=== PATIENT | male | born 1950 | race Caucasian/White ===

== ENCOUNTER 2016-11-27 19:39 | Emergency (ER) | payer OTHER ==
--- NOTE | 2016-11-27 21:00 | DIAGNOSTIC IMAGING REPORT ---
PROCEDURE: XR FINGER - LEFT (second finger). INDICATION: TRAUMA/INJURY TECHNIQUE: Three views. COMPARISON: None. FINDINGS: There is a deep soft tissue laceration of the volar / distal left second finger. Osseous structures and joint spaces are normal. No evidence of fracture. IMPRESSION: 1. Soft tissue laceration of the distal left second finger. 2. No evidence of fracture.
--- NOTE | 2016-11-27 21:24 | ED CLINICAL REPORT ---
Clinical Report - Physicians/Mid Levels [facility] [address] [place] [address] 11/27/2016 19:41 [id number] Time Seen: 21:Nov 27 2016. Arrived- By private vehicle. Historian- family and spouse. HISTORY OF PRESENT ILLNESS Chief Complaint: Injury to the left index finger. The injury happened just prior to arrival. The patient sustained a laceration and crush injury. Occurred at work. ( saw vs finger just prior to arrival. Denies si. Prior nail injury of the digit, no complicaitons from previous injury. Tdap up to date. FUll rom.). REVIEW OF SYSTEMS No tingling, numbness or skin laceration. All systems otherwise negative, except as recorded above. PAST HISTORY The patient's dominant hand is the right. He has had a prior injury to the same area. Tetanus immunization status is up-to-date. SOCIAL HISTORY Never smoker. No alcohol use or drug use. PHYSICAL EXAM Appearance: Alert. Head: Head atraumatic. CVS: Normal heart rate and rhythm. Heart sounds normal. Respiratory: No respiratory distress. Breath sounds normal. No decreased air movement. Extremities: Tip of left index finger: subcutaneous 1.0 cm laceration. No foreign body. No subungual hematoma, nail avulsion, exposed bone or loss of the nail bed on the left index finger or tip amputation of the left index finger. Neuro, Vascular and Tendons: Vascular status intact. Motor intact. Neuro: Oriented X 3. LABS, X-RAYS, AND EKG Lt UE Digits X-ray: (IMPRESSION: 1. Soft tissue laceration of the distal left second finger. 2. No evidence of fracture. _ Electronically Final signed by:Darrius Huerta MD 11/27/2016 8:55:52 PM). PROGRESS AND PROCEDURES Laceration Repair: Time: :Nov 27 2016. Location: left index finger. Time-out completed immediately before the procedure. Length: 1 cm. Complexity: simple (local anesthesia used and sutured). Wound depth/shape- linear and involving fascia. Wound is clean. Neuro/vascular/tendon status. Tendon examined. No sensory deficit or motor deficit distally. No tendon deficit. Anesthesia provided by digital block using 0.25% Marcaine. Prepped with Betadine. Wound explored, cleansed and irrigated. Subcutaneous closure: interrupted 4-0 (4, non absorb). Post-procedure: he is stable and there are no complications. Bleeding is controlled and neuro-vascular status is intact distal to the wound. Dressing applied. Tetanus immunization up-to-date. Course of Care: distal duncan surface lac, with no underlying fx or underlying neurovascular/ tendon injury, just distal to dip. No fb, no secondary signs of infection. Patient is stable. Symptoms better. Patient/family counseled. Disposition: Discharged. CLINICAL IMPRESSION Single deep laceration to the left index finger.Treatment of laceration not delayed. No infection or foreign body present. INSTRUCTIONS Apply ice. Elevate affected areas above chest level. Protect wound and keep wound area clean. Apply bacitracin twice daily. Sutures should be removed in six days. (6-8 days for suture removal). Follow-up: Follow up with your doctor in seven days. (Electronically signed by Albania Evans P.A.-C 11/27/2016 21:31)
--- NOTE | 2016-11-27 21:24 | ED NURSING NOTES ---
Clinical Report - Nurses [facility] [place] [place] [address] 11/27/2016 19:41 [id number] TRI[facility] Triage time 07:45. Acuity: LEVEL 4. Chief Complaint: INJURY TO LEFT HAND. 19:54 11/27/16. Alert. No acute distress. SEPSIS SCREEN: Sepsis Screen. Negative (no infection suspected/documented). GEOVANNA COMA SCORE: Geovanna Coma Scale: 15- eyes open spontaneously (4); best verbal response- oriented x 4 (5); best motor response- obeys commands (6). --19:54 Brie Charlton R.N. 19:49 11/27/16. BP: 163/82. HR: 75. RR: 15. O2 saturation: 97%. Temp: 97.5 F. Pain level now: 10/09. --19:54 Brie Charlton R.N. Weight: 77.1 kg stated. Height/Length: 65 inches Per Patient. BMI: 28.3. --19:52 Brie Charlton R.N. Medications Amlodipine Besy-Benazepril HCl Oral. --19:51 Brie Charlton R.N. Enalapril Maleate Oral. --19:51 Brie Charlton R.N. Allergies None. --19:51 Brie Charlton R.N. History Arrived by private vehicle. Historian: patient. Accompanied by family. Primary physician (Dr Branham). This occurred just prior to arrival. He sustained a laceration from a sharp edge. ( Patient reports that his "finger was in the wrong place" when he was sawing wood. His finger was cut by the saw). 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 PAST MEDICAL HX: Tetanus status: up-to-date. Immunizations: up-to-date. SOCIAL HX: Never smoker. No alcohol use or drug use. FALL RISK ASSESSMENT: Fall risk assessment completed. No fall risk identified. NUTRITIONAL RISK ASSESSMENT: The nutritional risk assessment revealed no deficiencies. FUNCTIONAL ASSESSMENT: Functional assessment: no impairments noted. LEARNING NEEDS ASSESSMENT: The learning needs assessment revealed no barriers. SKIN INTEGRITY ASSESSMENT: Skin integrity risk assessment completed. No skin integrity risk identified. --19:54 Brie Charlton R.N. PROBLEMS: Ureterolithiasis. Nephrolithiasis. Acute Pain. Nail Avulsion. Tetanus Status. Hypertension. --19:51 Brie Charlton R.N. ADDITIONAL SURGERIES: Blood clot removal from brain. Hernia Repair. Knee Surgery. Vasectomy. --19:51 Brie Charlton R.N. Interventions ID band on patient. To treatment room. --19:54 Brie Charlton R.N. PHYSICAL ASSESSMENT 19:54 11/27/16. Ambulatory to room. GENERAL / NEURO / PSYCH: Oriented X 4. Alert. Appears in no acute distress. EXTREMITIES: Capillary refill is less than 2 seconds in the extremities. Extremity pulses are within normal limits. Extremities exhibit normal ROM. Tip of left index finger: subcutaneous 1.0 cm laceration with bleeding. SKIN: Skin intact. Skin is warm and dry. --19:54 Brie Charlton R.N. NURSING PROGRESS NOTES 19:55 11/27/16. Two patient identifiers checked. Call light placed in reach. Side rails up x 1. Bed placed in lowest position. Brakes of bed on. Patient ready for evaluation- chart flagged and notification provided. --19:55 Brie Charlton R.N. 20:54. Patient and family informed about reason for wait and about plan of care. --20:59 Brie Charlton R.N. 21:14. Applied dressing consisting of gauze, following the application of antibiotic ointment (bacitracin). Secured with tube gauze. --03:31 Brie Charlton R.N. DISPOSITION / DISCHARGE 21:38 11/27/16. No learning barriers present. Discharge instructions provided and reviewed with the patient and spouse. Reviewed medication(s). Treatments reviewed. Activity restrictions reviewed. Patient and spouse verbalized understanding. Written instructions provided in Nepali. The patient was discharged home and accompanied by spouse. He left the Emergency Department ambulatory and via private vehicle. Spouse driving. --21:38 Brie Charlton R.N. 21:37 11/27/16. BP: 149/91. HR: 66. RR: 16. O2 saturation: 98%. Temp: deferred. Pain level now: 10/09. --21:38 Brie Charlton R.N. Locked/Released at 11/28/2016 3:32 by Brie Charlton R.N.
--- NOTE | 2016-11-27 21:24 | ED NURSING NOTES ---
Clinical Report - Nurses [facility] [address] [place] [address] 11/27/2016 19:41 [id number] TRI[facility] Triage time 07:45. Acuity: LEVEL 4. Chief Complaint: INJURY TO LEFT HAND. 19:54 11/27/16. Alert. No acute distress. SEPSIS SCREEN: Sepsis Screen. Negative (no infection suspected/documented). GEOVANNA COMA SCORE: Geovanna Coma Scale: 15- eyes open spontaneously (4); best verbal response- oriented x 4 (5); best motor response- obeys commands (6). --19:54 Brie Charlton R.N. 19:49 11/27/16. BP: 163/82. HR: 75. RR: 15. O2 saturation: 97%. Temp: 97.5 F. Pain level now: 10/09. --19:54 Brie Charlton R.N. Weight: 77.1 kg stated. Height/Length: 65 inches Per Patient. BMI: 28.3. --19:52 Brie Charlton R.N. Medications Amlodipine Besy-Benazepril HCl Oral. --19:51 Brie Charlton R.N. Enalapril Maleate Oral. --19:51 Brie Charlton R.N. Allergies None. --19:51 Brie Charlton R.N. History Arrived by private vehicle. Historian: patient. Accompanied by family. Primary physician (Dr Branham). This occurred just prior to arrival. He sustained a laceration from a sharp edge. ( Patient reports that his "finger was in the wrong place" when he was sawing wood. His finger was cut by the saw). 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 PAST MEDICAL HX: Tetanus status: up-to-date. Immunizations: up-to-date. SOCIAL HX: Never smoker. No alcohol use or drug use. FALL RISK ASSESSMENT: Fall risk assessment completed. No fall risk identified. NUTRITIONAL RISK ASSESSMENT: The nutritional risk assessment revealed no deficiencies. FUNCTIONAL ASSESSMENT: Functional assessment: no impairments noted. LEARNING NEEDS ASSESSMENT: The learning needs assessment revealed no barriers. SKIN INTEGRITY ASSESSMENT: Skin integrity risk assessment completed. No skin integrity risk identified. --19:54 Brie Charlton R.N. PROBLEMS: Ureterolithiasis. Nephrolithiasis. Acute Pain. Nail Avulsion. Tetanus Status. Hypertension. --19:51 Brie Charlton R.N. ADDITIONAL SURGERIES: Blood clot removal from brain. Hernia Repair. Knee Surgery. Vasectomy. --19:51 Brie Charlton R.N. Interventions ID band on patient. To treatment room. --19:54 Brie Charlton R.N. PHYSICAL ASSESSMENT 19:54 11/27/16. Ambulatory to room. GENERAL / NEURO / PSYCH: Oriented X 4. Alert. Appears in no acute distress. EXTREMITIES: Capillary refill is less than 2 seconds in the extremities. Extremity pulses are within normal limits. Extremities exhibit normal ROM. Tip of left index finger: subcutaneous 1.0 cm laceration with bleeding. SKIN: Skin intact. Skin is warm and dry. --19:54 Brie Charlton R.N. NURSING PROGRESS NOTES 19:55 11/27/16. Two patient identifiers checked. Call light placed in reach. Side rails up x 1. Bed placed in lowest position. Brakes of bed on. Patient ready for evaluation- chart flagged and notification provided. --19:55 Brie Charlton R.N. 20:54. Patient and family informed about reason for wait and about plan of care. --20:59 Brie Charlton R.N. 21:14. Applied dressing consisting of gauze, following the application of antibiotic ointment (bacitracin). Secured with tube gauze. --03:31 Brie Charlton R.N. DISPOSITION / DISCHARGE 21:38 11/27/16. No learning barriers present. Discharge instructions provided and reviewed with the patient and spouse. Reviewed medication(s). Treatments reviewed. Activity restrictions reviewed. Patient and spouse verbalized understanding. Written instructions provided in Hungarian. The patient was discharged home and accompanied by spouse. He left the Emergency Department ambulatory and via private vehicle. Spouse driving. --21:38 Brie Charlton R.N. 21:37 11/27/16. BP: 149/91. HR: 66. RR: 16. O2 saturation: 98%. Temp: deferred. Pain level now: 10/09. --21:38 Brie Charlton R.N. Locked/Released at 11/28/2016 3:32 by Brie Charlton R.N.
--- NOTE | 2016-11-27 21:24 | ED ORDER SUMMARY ---
..... Patient: TREV CLAYTON OrderSheet [facility] VisitID: [id number] [address] [place] [address] 66y, M Registration Date/Time: 11/27/2016 ORDER SHEET Weight: 77.1 kg (stated) Allergies: None GENERAL ORDERS: Finger Left (2) Urgent (20:18 11/27/2016 Hina Rodgers) ([facility] 20:20 Drake) (20:51 Maira) MEDICATION ORDERS: IV FLUIDS: ORDER SHEET NOTES: [Electronically signed by Albania Evans P.A.-C (21:31 11/27/2016)] [Electronically signed by Brie Charlton R.N. (03:32 11/28/2016)] [Electronically locked/signed by Brie Charlton R.N. (03:32 11/28/2016)]
--- NOTE | 2016-11-27 21:24 | ED ORDER SUMMARY ---
..... Patient: TREV CLAYTON OrderSheet [facility] VisitID: [id number] [address] [place] [address] 66y, M Registration Date/Time: 11/27/2016 ORDER SHEET Weight: 77.1 kg (stated) Allergies: None GENERAL ORDERS: Finger Left (2) Urgent (20:18 11/27/2016 Hina Rodgers) ([facility] 20:20 Drake) (20:51 Maira) MEDICATION ORDERS: IV FLUIDS: ORDER SHEET NOTES: [Electronically signed by Albania Evans P.A.-C (21:31 11/27/2016)] [Electronically signed by Brie Charlton R.N. (03:32 11/28/2016)] [Electronically locked/signed by Brie Charlton R.N. (03:32 11/28/2016)]
--- NOTE | 2016-11-28 03:32 | ED MAR SUMMARY ---
..... Medication Administration Record [facility] [address] [place] [address] Patient: TREV CLAYTON Giorgi Visit ID: [id number] 66y, M Weight: 77.1 kg Height/Length: 65 in BMI: 28.3 ALLERGIES: None
--- NOTE | 2016-11-28 03:32 | ED MED RECONCILIATION SUMMARY ---
Patient: TREV CLAYTON Medication Reconciliation Report [facility] VisitID: [id number] [address] [place] [address] 66y, M Registration Date/Time: 11/27/2016 Weight: 77.1 kg Height/Length: 65 in. BMI: 28.3 ALLERGIES: None The patient's Home Medications are listed below: THE FOLLOWING MEDICATIONS NEED TO BE RECONCILED: Amlodipine Besy-Benazepril HCl Oral Enalapril Maleate Oral The source(s) of the original Home Medication information: Not obtained. The following Medications were given to the patient in the Emergency Department: None. The following Medications were prescribed to the patient: None.
--- NOTE | 2016-11-28 03:32 | ED MAR SUMMARY ---
..... Medication Administration Record [facility] [address] [place] [address] Patient: TREV CLAYTON iGorgi Visit ID: [id number] 66y, M Weight: 77.1 kg Height/Length: 65 in BMI: 28.3 ALLERGIES: None
--- NOTE | 2016-11-28 03:32 | ED MED RECONCILIATION SUMMARY ---
Patient: TREV CLAYTON Medication Reconciliation Report [facility] VisitID: [id number] [address] [place] [address] 66y, M Registration Date/Time: 11/27/2016 Weight: 77.1 kg Height/Length: 65 in. BMI: 28.3 ALLERGIES: None The patient's Home Medications are listed below: THE FOLLOWING MEDICATIONS NEED TO BE RECONCILED: Amlodipine Besy-Benazepril HCl Oral Enalapril Maleate Oral The source(s) of the original Home Medication information: Not obtained. The following Medications were given to the patient in the Emergency Department: None. The following Medications were prescribed to the patient: None.
--- NOTE | 2016-11-28 03:32 | ED DISCHARGE INSTRUCTIONS ---
Patient: TREV CLAYTON General Instructions [facility] VisitID: [id number] [place] [address] 66y, M Registration Date/Time: 11/27/2016 Single deep laceration to the left index finger.Treatment of laceration not delayed. No infection or foreign body present. INSTRUCTIONS Apply ice. Elevate affected areas above chest level. Protect wound and keep wound area clean. Apply bacitracin twice daily. Sutures should be removed in six days. (6-8 days for suture removal). Follow-up: Follow up with your doctor in seven days. ADDITIONAL INFORMATION Laceration (All Closures) Alaceration is a cut through the skin. This will usually require stitches (sutures) or kong if it is deep. Minor cuts may be treated with a surgical tape closure orskin glue. Home care The following guidelines will help you care for your laceration at home: Extremity, face, or trunk wounds Keep the wound clean and dry. If a bandage was applied and it becomes wet or dirty, replace it. Otherwise, leave it in place for the first 24 hours. If stitches or kong were used, clean the wound daily. After removing the bandage, wash the area with soap and water. Use a wet cotton swab to loosen and remove any blood or crust that forms. The doctor may prescribe an antibiotic cream or ointment to prevent infection. Do not stop taking this medication until you have finished the prescribed course or the doctor tells you to stop. The doctor may also prescribe medications for pain. Follow the doctors instructions for taking these medications. You may remove the bandage to shower as usual after the first 24 hours, but do not soak the area in water (no swimming) until the stitches or kong are removed. If surgical tape was used, keep the area clean and dry. If it becomes wet, blot it dry with a towel. If skin glue was used, do not scratch, rub, or pick at the adhesive film. Do not place tape directly over the film. Do not apply liquid, ointment, or creams to the wound while the film is in place. Do not clean the wound with peroxide and do not apply ointments. Avoid activities that cause heavy sweating until the film has fallen off. Protect the wound from prolonged exposure to sunlight or tanning lamps. You may shower as usual but do not soak the wound in water (no baths or swimming). The film will fall off by itself in 510 days. Scalp wounds During the first two days, you may carefully rinse your hair in the shower to remove blood, glass or dirt particles. After two days, you may shower and shampoo your hair normally. Do not soak your scalp in the tub or go swimming until the stitches or kong have been removed. Talk with your doctor before applying any antibiotic ointment to the wound. Mouth wounds Eat soft foods to reduce pain. If the cut is inside of your mouth, clean by rinsing after each meal and at bedtime with a mixture of equal parts water and hydrogen peroxide (do not swallow!). Or, you can use a cotton swab to directly apply hydrogen peroxide onto the cut. Mouth wounds can be painful when eating. You may use an [id number] local numbing solution for pain relief. If this is not available, you may use any numbing solution for teething babies. You may apply this directly to the sores with a cotton-tip swab or with your finger. Follow-up care Follow up with your health care provider. Most skin wounds heal within ten days. Mouth and facial wounds heal within five days. However, even with proper treatment, a wound infection may sometimes occur. Therefore, you should check the wound daily for signs of infection listed below. Stitches should be removed from the face within five days; stitches and kong should be removed from other parts of the body within 714 days. If dissolving stitches were used in the mouth, these will fall out or dissolve without the need for removal. If tape closures were used, remove them yourself if they have not fallen off after 7 days. Ifskin glue was used, the film will fall off by itself in 510 days. When to seek medical care Get prompt medical attention if any of these occur: Bleeding not controlled by direct pressure Signs of infection, including increasing pain in the wound, increasing wound redness or swelling, or pus coming from the wound Fever of 100.4F (38C) or higher, or as directed by your health care provider Stitches or kong come apart or fall out or surgical tape falls off before 7 days Wound edges re-open Laceration, Extremity (Sutures, Johnson, Or Tape) A laceration is a cut through the skin. This will usually require stitches (sutures) or kong if it is deep. Minor cuts may be treated with surgical tape closures. Home care The following guidelines will help you care for your laceration at home: Keep the wound clean and dry. If a bandage was applied and it becomes wet or dirty, replace it. Otherwise, leave it in place for the first 24 hours, then change it once a day or as directed. If stitches or kong were used, clean the wound daily: After removing the bandage, wash the area with soap and water. Use a wet cotton swab to loosen and remove any blood or crust that forms. After cleaning, keep the wound clean and dry. Talk with your doctor before applying any antibiotic ointment to the wound. Reapply the bandage. You may remove the bandage to shower as usual after the first 24 hours, but do not soak the area in water (no swimming) until the stitches or kong are removed. If surgical tape closures were used, keep the area clean and dry. If it becomes wet, blot it dry with a towel. The doctor may prescribe an antibiotic cream or ointment to prevent infection. Do not stop taking this medication until you have finished the prescribed course or the doctor tells you to stop. The doctor may also prescribe medications for pain. Follow the doctors instructions for taking these medications. If you have chronic liver or kidney disease or ever had a stomach ulcer or GI bleeding, talk with your doctor before using these medicines. Follow-up care Follow up with your health care provider. Most skin wounds heal within ten days. However, an infection may sometimes occur despite proper treatment. Therefore, check the wound daily for the signs of infection listed below. Stitches and kong should be removed within 714 days. If surgical tape closures were used, you may remove them after 10 days, if they have not fallen off by then. Notify your doctor if you notice persistent numbness or weakness in the injured extremity. (Note:A radiologist will review any X-rays that were taken. We will notify you of any new findings that may affect your care.) When to seek medical care Get prompt medical attention if any of these occur: Increasing pain in the wound Redness, swelling, or pus coming from the wound Fever of 100.4F (38C) or higher, or as directed by your health care provider If stitches or kong come apart or fall out before your next appointment If the surgical tape closures fall off within seven days, or the wound edges re-open Bleeding not controlled by direct pressure You have been given the following additional information: Laceration, All Laceration, Extrem (Suture, Staple, Or Tape) (Electronically signed by Albania Evans P.A.-C 11/27/2016 21:31)
== END 2016-11-27 21:38 | disposition home or self-care (01) ==
LOC: ED SRH 19:39
DX: S61.211A Laceration without foreign body of left index finger without damage to nail, initial encounter (principal); W27.0XXA Contact with workbench tool, initial encounter; Y93.89 Activity, other specified; Y99.0 Civilian activity done for income or pay; Y92.89 Other specified places as the place of occurrence of the external cause; I10 Essential (primary) hypertension; Z79.899 Other long term (current) drug therapy